=== PATIENT | male | born 1990 | race African-American/Black ===

== ENCOUNTER 2021-02-14 14:10 | Inpatient (IN) | payer OTHER ==
[~2021-02-14] VITALS: Ht 190.5 cm; Wt 62.6 kg
[~2021-02-14 14:10] MED LIST: FOLIC ACID 40400 MCG PO; IRON159 MG; MORPHINE SULFAT15 M5; MORPHINE SULFAT30 M4; OXYCODON-ACETA1 EAC1 PO; PERCOCET 10-321 EACH PO; PHENERGAN 25 MG25 M1 PO
[2021-02-14 20:10] VITALS: BP 126/84
[2021-02-15] MEDS ORDERED: MS CONTIN15 MG PO (00:26)
[2021-02-15] MEDS ORDERED: MORPHINE SULFAT15 MG PO (02:28)
[2021-02-15] MEDS ORDERED: OXYCODONE HCL10 MG PO (02:30)
[2021-02-15 03:37] LABS: MCH 31.2 pg (26.0-34.0); MCHC 36.3 g/dL (28.0-37.0); RBC 2.24 mil/uL (4.50-6.00); RDW 28.2 % (10.5-14.5); WBC 11.4 thou/uL (4.0-11.0)
[2021-02-15 03:49] LABS: CALCIUM 8.1 mg/dL (8.5-10.1); CREATININE 0.5 mg/dL (0.7-1.3); POTASSIUM 4.3 mmol/L (3.5-5.1)
[2021-02-15 04:34] LABS: HEMATOCRIT 19.3 % (42.0-52.0)
[2021-02-15 07:02] VITALS: BP 106/52
[2021-02-15] MEDS ORDERED: FOLIC ACID1 MG PO (07:44)
--- NOTE | 2021-02-15 08:26 | NUR ---
PT ADMITTED TO UNIT PRIOR TO SHIFT, CONSENTS OBTAINED, ADMISSION PACKET PROVIDED. PT ORIENTED TO ROOM AND UNIT. PT AOX4. PT REPORTS 10/10 GENERALIZED BODY PAIN. PT RECEIVING PRN IV MORPHINE Q4HR WITHOUT EFFECT, ONCALL TECHNICAL SUPPORT AGENT NOTIFIED, COORDINATION OF CARE THROUGHOUT THE NIGHT TO ENSURE EFFECTIVE PAIN MANAGEMENT, EMAR UPDATED. PT DENIES SOB WHILE ON ROOM AIR. PT TOLERATING PO INTAKE OF FLUIDS AND REGULAR DIET WITHOUT ISSUE. PT WITHOUT NAUSEA OR EMESIS. PT VOIDING PER URINAL. PT RESTING IN BED THROUGHOUT SHIFT, FREQUENT REPOSITIONING ENCOURAGED WHILE IN BED, PT NOTED TO SHIFT INDEPENDENTLY. PT OBSERVED AMBULATING INDEPENDENTLY IN ROOM WITH STEADY GAIT. NONPITTING EDEMA NOTED TO BLE. SENSATION INTACT, CAPILLARY REFILL LESS THAN 3SEC, PERIPHERAL PULSES PALPABLE IN ALL EXTREMITIES. PT ENCOURAGED TO NOTIFY STAFF FOR ALL NEEDS, CALL LIGHT WITHIN REACH, BED LOCKED IN LOWEST POSITION, FREQUENT MONITORING WILL CONTINUE.
[2021-02-15 10:37] LABS: ABSOLUTE RETIC COUNT 0.2141 10^6/uL; OBSERVED RETIC COUNT 9.73 % (0.6-2.6)
--- NOTE | 2021-02-15 12:47 | NUR ---
Assess due to low BMI 17.3. Pt newly admitted with sickle cell crisis. Pt in room, lights out so did not awaken. Chart reviewed and tolerated first meals without issue. On MVI, folic acid, ivf. Will follow up at later date to check on wt status.
--- NOTE | 2021-02-15 13:14 | NUR ---
Pt. AxOx4 having continually pain. Medications only slightly relieve the pain. IV infusing NS .9 at 50ml/hr. Pt uses urinal. Has heart murmur. Last BM 02/14/2021. RA lungs clear. Bed alarm on and fall precautions in place. Will continue to monitor until end of shift.
--- NOTE | 2021-02-15 13:24 | NUR ---
ASSESSMENT: CM REVIEWED CHART AND SPOKE WITH PATIENT AT THE BEDSIDE. PT IS ALERT AND ORIENTED X4. PER RECORDS PT IS A DIRECT ADMIT FROM [facility] WHERE HE WAS SENT HERE FOR INCREASED LEVEL OF CARE FOR SICKLE CELL CRISIS. PT IS CURRENTLY ON IV FLUIDS AND WORKING ON PAIN CONTROL. PT REPORTS THAT HE LIVES WITH HIS BROTHER IN [place]. PT REPORTS BEING FULLY INDEPENDENT WITH ADLS AND AMBULATION. PT REPORTS HE DOES HAVE OXYGEN PRN AT HOME HE WEARS 1-2L PRN THROUGH [employer] (PT THINKS THIS IS THE CORRECT COMPANY). PT REPORTS HE HAS NOT HAD HH IN THE PAST. CM DISCUSSED ROLE. PT DOES NOT ANTICIPATE HAVING ANY NEEDS FROM CM PRIOR TO DISCHARGE. CM WILL CONTINUE TO FOLLOW TO ASSIST NEEDED.
[2021-02-15 15:50] VITALS: BP 105/63
[2021-02-15 19:30] VITALS: BP 91/45
[2021-02-15 20:24] VITALS: BP 91/45
[2021-02-16 03:55] VITALS: BP 114/74
[2021-02-16 07:20] VITALS: BP 107/66
--- NOTE | 2021-02-16 08:16 | NUR ---
UPON SHIFT REPORT, FAMILY PRESENT AT BEDSIDE, PT EXPRESSING DISCONTENT AND DISSATISFACTION WITH SERVICES PROVIDED WHILE INPATIENT PT REPORTS DISTRUST WITH PHYSICIANS DUE TO POOR PAIN MANAGEMENT AND NOT CONTACTING FOR HIS RECORDS. PT RIGHTS REINFORCED. PT REQUESTING TO CHANGE PHYSICIAN, FIRE INSPECTOR NOTIFIED BY DAYSHIFT CHARGE NURSE. UPON SHIFT ASSESSMENT, PT AOX4. PT REPORTS 8/10 GENERALIZED BODY PAIN. PT RECEIVING PRN PO OXYCODONE Q4HR AND PRN IV MORPHINE Q3HR. PT DENIES SOB WHILE ON ROOM AIR. PT AMBULATING INDEPENDENTLY TO SIDE OF BED, VOIDING PER URINAL, RESTING IN BED OTHERWISE. FREQUENT REPOSITIONING ENCOURAGED WHILE IN BED, PT NOTED TO SHIFT INDEPENDENTLY. SENSATION INTACT, CAPILLARY REFILL LESS THAN 3SEC, PERIPHERAL PULSES PALPABLE IN ALL EXTREMITIES. PT ENCOURAGED TO NOTIFY STAFF FOR ALL NEEDS, CALL LIGHT WITHIN REACH, BED LOCKED IN LOWEST POSITION, FREQUENT MONITORING WILL CONTINUE.
--- NOTE | 2021-02-16 10:56 | NUR ---
Pt is lethargic AXOX4. Pt has not required as much pain management today. He has not asked about FILM PRINTER. He understands our hospital does not give FILM PRINTER's for his diagnosis. If he requires that he needs to go back to [facility]. Remains on RA lungs diminished. Active bowel sound remains continent of B&B. IV in L FA infusing NS at 126ml/hr. He is receiving Morphine q 3 hours and Oxycodone q 4 hours. Remains on regular diet eating poorly. Skin intact and bed is in low position with call light within reach.
[2021-02-16 16:23] VITALS: BP 101/52
[2021-02-16] MEDS ORDERED: A THRU Z ADVAN1 EAC1 PO (18:16)
[2021-02-16] MEDS ORDERED: IBUPROFEN 200200 M1 PO (18:16)
[2021-02-16] MEDS ORDERED: ACETAMINOPHEN325 M1 PO (18:16)
[2021-02-16 18:29] VITALS: BP 101/52
== END 2021-02-16 18:48 | disposition home or self-care (01) | DRG 812 ==
LOC: 4S 14:10
PROVIDERS: Nurse Practitioner Family; ADMIT Internal Medicine; ATTEND Internal Medicine
DX: D57.00 Hb-SS disease with crisis, unspecified (principal); G89.4 Chronic pain syndrome; K21.9 Gastro-esophageal reflux disease without esophagitis; F17.210 Nicotine dependence, cigarettes, uncomplicated; F12.90 Cannabis use, unspecified, uncomplicated; Z20.822 Contact with and (suspected) exposure to COVID-19; Z88.6 Allergy status to analgesic agent; Z90.49 Acquired absence of other specified parts of digestive tract; Z91.19 Patient's noncompliance with other medical treatment and regimen; Z79.891 Long term (current) use of opiate analgesic; Z79.899 Other long term (current) drug therapy
CPT/HCPCS: 10102